=== PATIENT | male | born 2000 | race Two or more races ===

== ENCOUNTER 2020-01-02 12:43 | Emergency (ER) | payer MEDICAID ==
[~2020-01-02] VITALS: Ht 170.2 cm; Wt 65.6 kg
[2020-01-02 13:06] VITALS: BP 129/78
[2020-01-02] MEDS ORDERED: ketorolac tromethamine 15mg/ml inj. IM ONE (13:30)
[2020-01-03] MEDS ORDERED: IBUP-1984 PO (13:09)
== END 2020-01-02 14:51 | disposition home or self-care (01) ==
LOC: ER 12:44
DX: S30.0XXA Contusion of lower back and pelvis, initial encounter (principal); M25.551 Pain in right hip; V87.8XXA Person injured in other specified noncollision transport accidents involving motor vehicle (traffic), initial encounter; Y93.89 Activity, other specified; Y92.89 Other specified places as the place of occurrence of the external cause; Y99.8 Other external cause status
CPT/HCPCS: 72100; 96372; 99283; J1885

== ENCOUNTER 2020-01-03 12:40 | Emergency (ER) | payer MEDICAID, OTHER ==
[~2020-01-03] VITALS: Ht 180.3 cm; Wt 75.0 kg
[2020-01-03 12:56] VITALS: BP 127/66
[2020-01-03] MEDS ORDERED: IBUP-1984 PO (13:09)
== END 2020-01-03 14:23 | disposition home or self-care (01) ==
LOC: ER 12:40
DX: M54.5 Low back pain (principal); V00.131A Fall from skateboard, initial encounter; Y93.51 Activity, roller skating (inline) and skateboarding; Y92.89 Other specified places as the place of occurrence of the external cause; Y99.9 Unspecified external cause status
CPT/HCPCS: 99284